=== PATIENT | male | born 1945 | race Caucasian/White ===

== ENCOUNTER → 2017-09-30 | Outpatient (CLI) | payer OTHER ==
[2016-11-01 19:59] VITALS: BP 147/68
[~2017-09-30] MED LIST: ACLI400A2 IH; ASPI325T8 PO; NIFE60TA14 PO; NIFE60TA16 PO; PROAIR HFA8.5 GM IH
--- NOTE | 2017-09-30 16:36 | RAD ---
Examination: CT chest without contrast History: History of cough Comparison: 09/25/2013 Technique: Axial CT images of the chest were performed without contrast. Coronal and sagittal reformats are performed PQRS Compliance Statement: One or more of the following individualized dose reduction techniques were utilized for this examination: 1. Automated exposure control 2. Adjustment of the mA and/or kV according to patient size 3. Use of iterative reconstruction technique Findings: The visualized thyroid gland grossly appears unremarkable. The central airways are patent. The heart size grossly appears unremarkable. . Coronary artery calcification is identified. The ascending aorta measures 3.2 cm in transverse dimension. No radiologically significant mediastinal lymphadenopathy identified. Mild paraseptal emphysematous is identified in the bilateral apical lungs. No evidence of pleural effusion or pneumothorax. The visualized noncontrasted liver, spleen, adrenals grossly appears unremarkable. Severe aortic atherosclerosis. Moderate degenerative changes thoracic spine. Impression: 1. Mild paraseptal emphysematous changes apical lungs. 2. Coronary artery calcifications.
== END | disposition home or self-care (01) ==
LOC: CT 15:47
PROVIDERS: ATTEND Internal Medicine Pulmonary Disease
DX: J43.8 Other emphysema (principal); I25.10 Atherosclerotic heart disease of native coronary artery without angina pectoris; I70.0 Atherosclerosis of aorta
CPT/HCPCS: 71250

== ENCOUNTER 2018-08-18 17:29 | Emergency (ER) | payer OTHER ==
[~2018-08-18] VITALS: Ht 188 cm; Wt 68.9 kg
[2018-08-18 18:04] LABS: BASO # 0.1 x10^3/uL (0.0-0.2); BASO % 1 % (0-3); EOS # 0.2 x10^3/uL (0.0-0.7); EOS % 3 % (0-3); HEMATOCRIT 40.4 % (39.0-53.0); HEMOGLOBIN 14.2 g/dL (13.0-17.5); LYMPH # 1.1 x10^3/uL (1.0-4.8); LYMPH % 16 % (24-48); MEAN CORPUSCULAR HEMOGLOBIN 35 pg (25-35); MEAN CORPUSCULAR HGB CONC 35 g/dL (31-37); MEAN CORPUSCULAR VOLUME 99 fL (79-100); MONO # 0.5 x10^3/uL (0.0-1.1); MONO % 8 % (0-9); NEUT # 5.1 x10^3uL (1.8-7.7); NEUT % 73 % (31-73); PLATELET COUNT 161 x10^3/uL (140-400); RED BLOOD COUNT 4.08 x10^6/uL (4.30-5.70); RED CELL DISTRIBUTION WIDTH 13.6 % (11.5-14.5)
[2018-08-18 18:12] LABS: CALCIUM 8.8 mg/dL (8.5-10.1); CREATININE 0.9 mg/dL (0.7-1.3); GFR 82.9
[2018-08-18 18:20] LABS: BILIRUBIN,URINE NEGATIVE (NEG); CLARITY,URINE CLOUDY; COLOR,URINE YELLOW; NITRITE,URINE NEGATIVE (NEG); PROTEIN,URINE NEGATIVE (NEG-TRACE); UROBILINOGEN,URINE 0.2 mg/dL (0.2 mg/dL)
--- NOTE | 2018-08-18 18:23 | PHYS DOC ---
Past Medical History Past Medical History: COPD, Other Additional Past Medical Histor: FATIMAH, Past Surgical History: Other Additional Past Surgical Histo: HERNIA X 3 Alcohol Use: None Drug Use: None Adult General Chief Complaint Chief Complaint: NEAR SYNCOPE HPI HPI Patient is a 73 year old male who presents with becoming lightheaded to 3 times a week for the last several weeks. Patient states that his job he has to squat down a lot and as he stands up he will get lightheaded or his legs his thighs bilaterally and losartan tingle only down to his heels after having squatted for a while work. Patient states he has never lost consciousness. Patient denies any chest pain or shortness of air. Review of Systems Review of Systems Constitutional: Denies fever or chills [] Eyes: Denies change in visual acuity, redness, or eye pain [] HENT: Denies nasal congestion or sore throat [] Respiratory: Denies cough or shortness of breath [] Cardiovascular: No additional information not addressed in HPI [] GI: Denies abdominal pain, nausea, vomiting, bloody stools or diarrhea [] : Denies dysuria or hematuria [] Musculoskeletal: Denies back pain or joint pain [] Integument: Denies rash or skin lesions [] Neurologic: Light headedness after standing up after having been squatted. Denies headache, focal weakness or bilateral thigh tingling after having squatted sensory changes [] Endocrine: Denies polyuria or polydipsia [] All other systems were reviewed and found to be within normal limits, except as documented in this note. Allergies Allergies Allergies Coded Allergies Type Severity Reaction Last Updated Verified No Known Drug Allergies 09/25/13 No Physical Exam Physical Exam Constitutional: Well developed, well nourished, no acute distress, non-toxic appearance. [] HENT: Normocephalic, atraumatic, bilateral external ears normal, oropharynx moist, no oral exudates, nose normal. [] Eyes: PERRLA, EOMI, conjunctiva normal, no discharge. [] Neck: Normal range of motion, no tenderness, supple, no stridor. [] Cardiovascular:Heart rate regular rhythm, no murmur [] Lungs & Thorax: Bilateral breath sounds clear to auscultation [] Abdomen: Bowel sounds normal, soft, no tenderness, no masses, no pulsatile masses. [] Skin: Warm, dry, no erythema, no rash. [] Back: No tenderness, no CVA tenderness. [] Extremities: No tenderness, no cyanosis, no clubbing, ROM intact, no edema. [] Neurologic: Alert and oriented X 3, normal motor function, normal sensory function, no focal deficits noted. [] Psychologic: Affect normal, judgement normal, mood normal. [] Current Patient Data Vital Signs Vital Signs Date Time Temp Pulse Resp B/P (MAP) Pulse Ox O2 Delivery O2 Flow Rate FiO2 08/18/18 17:52 98.4 72 18 175/81 (112) 99 Room Air 98.4 Lab Values Laboratory Tests Test 08/18/18 17:44 White Blood Count 7.0 x10^3/uL (4.0-11.0) Red Blood Count 4.08 x10^6/uL (4.30-5.70) L Hemoglobin 14.2 g/dL (13.0-17.5) Hematocrit 40.4 % (39.0-53.0) Mean Corpuscular Volume 99 fL (79-100) Mean Corpuscular Hemoglobin 35 pg (25-35) Mean Corpuscular Hemoglobin Concent 35 g/dL (31-37) Red Cell Distribution Width 13.6 % (11.5-14.5) Platelet Count 161 x10^3/uL (140-400) Neutrophils (%) (Auto) 73 % (31-73) Lymphocytes (%) (Auto) 16 % (24-48) L Monocytes (%) (Auto) 8 % (0-9) Eosinophils (%) (Auto) 3 % (0-3) Basophils (%) (Auto) 1 % (0-3) Neutrophils # (Auto) 5.1 x10^3uL (1.8-7.7) Lymphocytes # (Auto) 1.1 x10^3/uL (1.0-4.8) Monocytes # (Auto) 0.5 x10^3/uL (0.0-1.1) Eosinophils # (Auto) 0.2 x10^3/uL (0.0-0.7) Basophils # (Auto) 0.1 x10^3/uL (0.0-0.2) Urine Collection Type Void Urine Color Yellow Urine Clarity Cloudy Urine pH 7.0 Urine Specific [place] 1.010 Urine Protein Negative mg/dL (NEG-TRACE) Urine Glucose (UA) Negative mg/dL (NEG) Urine Ketones (Stick) Negative mg/dL (NEG) Urine Blood Negative (NEG) Urine Nitrite Negative (NEG) Urine Bilirubin Negative (NEG) Urine Urobilinogen Dipstick 0.2 mg/dL (0.2 mg/dL) Urine Leukocyte Esterase Negative (NEG) Urine RBC 0 /HPF (0-2) Urine WBC 1-4 /HPF (0-4) Urine Squamous Epithelial Cells Occ /LPF Urine Bacteria Few /HPF (0-FEW) Sodium Level 143 mmol/L (136-145) Potassium Level 4.0 mmol/L (3.5-5.1) Chloride Level 105 mmol/L (98-107) Carbon Dioxide Level 29 mmol/L (21-32) Anion Gap 9 (6-14) Blood Urea Nitrogen 17 mg/dL (8-26) Creatinine 0.9 mg/dL (0.7-1.3) Estimated GFR (Cockcroft-Gault) 82.9 Glucose Level 161 mg/dL (70-99) H Calcium Level 8.8 mg/dL (8.5-10.1) Troponin I Quantitative < 0.017 ng/mL (0.000-0.055) Urine Opiates Screen Neg (NEG) Urine Methadone Screen Neg (NEG) Urine Barbiturates Neg (NEG) Urine Phencyclidine Screen Neg (NEG) Urine Amphetamine/Methamphetamine Neg (NEG) Urine Benzodiazepines Screen Neg (NEG) Urine Cocaine Screen Neg (NEG) Urine Cannabinoids Screen Neg (NEG) Urine Ethyl Alcohol Neg (NEG) Laboratory Tests 08/18/18 17:44 Laboratory Tests 08/18/18 17:44 EKG EKG Irregular rhythm, no STEMI, there is sinus artifact present Interpretation Time: [address] Jackson Radiology/Procedures Radiology/Procedures Chest xray Impressions: NO ACUTE FINDINGS Course & Med Decision Making Course & Med Decision Making Patient is a 73 year old male who presents with becoming lightheaded to 3 times a week for the last several weeks. Patient states that his job he has to squat down a lot and as he stands up he will get lightheaded or his legs his thighs bilaterally and losartan tingle only down to his heels after having squatted for a while work. Patient states he has never lost consciousness. Patient denies any chest pain or shortness of air. Patient's vital signs are 175 /81, 18 respirations, 98.4, 72 heart rate. Patient is alert and oriented. Patient has no extremity edema and skin is pink warm and dry. Pedal pulses are strong bilaterally. Patient denies any tingling, numbness, pallor, or coolness of extremities. Patient states only time he gets sick tingling in his upper thighs is from when he is been squatting. Patient has a history of COPD, depression, ADD, arthritis. Patient states he takes Mucinex daily, aspirin. She states he is allergic to an antibiotic but he cannot remember what it is. Lungs are clear in all lobes. Heart rate regular without murmur. Orthostatics are layin, 152/74. Sittin/82, 73. Standin/79, 74. Dr. Jackson read the chest x-ray and states there is no acute findings. Patient's blood work is unremarkable. Patient's vital signs are unremarkable. He is alert and oriented and is not complaining of any dizziness time. Walks with a steady gait without any dizziness. Patient got up from the bed from a sitting position without any kind of dizziness. Patient can stand at bedside without having any dizziness or feeling like he is falling to the side. He is to follow-up with his doctor in the next couple days. Patient should come back to the ED if he begins having chest pain or syncopal episodes. Patient is stable and in no distress. Does have some white blood cells and some bacteria in his urine will treated for urinary tract infection. [] Dragon Disclaimer Dragon Disclaimer This electronic medical record was generated, in whole or in part, using a voice recognition dictation system. Departure Departure Impression: Primary Impression: Lightheadedness Additional Impression: Urinary tract infection Disposition: 01 HOME, SELF-CARE Condition: STABLE Referrals: NO PCP (PCP) Patient Instructions: Dizziness, Urinary Tract Infection Additional Instructions: Follow up with your primary care doctor as soon as possible. Return to the ED if your begin having chest pain or lose consciousness. Scripts Ciprofloxacin Hcl (CIPROFLOXACIN HCL) 500 Mg Tablet 1 TAB PO BID, #10 TAB Prov: RALPH SHAHParish Raymond APRN 08/18/18 Problem Qualifiers Additional Impression: Urinary tract infection Urinary tract infection type: site unspecified Hematuria presence: without hematuria Qualified Codes: N39.0 - Urinary tract infection, site not specified BILL SHAH APRN Aug 18, 2018 18:23
[2018-08-18 18:27] LABS: BARBITURATES NEG (NEG); BENZODIAZEPINES NEG (NEG); CANNABINOIDS NEG (NEG); COCAINE NEG (NEG); METHADONE NEG (NEG); OPIATES NEG (NEG); PHENCYCLIDINE NEG (NEG)
[2018-08-18 18:31] LABS: AMPHETAMINE/METHAMPHETAMINE NEG (NEG)
[2018-08-18 18:39] LABS: RBC,URINE 0 /HPF (0-2)
[2018-08-18 18:40] LABS: BACTERIA,URINE FEW /HPF (0-FEW); SQUAMOUS EPITHELIAL CELL,UR OCC /LPF
[2018-08-18] MEDS ORDERED: CIPR500T PO (19:22)
[2018-08-18 19:49] VITALS: BP 150/79
--- NOTE | 2018-08-18 23:24 | RAD ---
Indication:ER PATIENT. NEAR SYNCOPAL EPISODE TODAY. DIZZINESS. Nx HTN, COPD. NO PRIORS TECHNIQUE:PA and lateral views of the chest COMPARISON: None FINDINGS: Heart is normal in size. Lungs are hyperinflated with flattening of diaphragm and increased retrosternal space. No focal consolidation. No pneumothorax or pleural effusion. Visualized bony thorax is within normal limits. IMPRESSION: Findings of COPD. No acute pulmonary process. Electronically signed by: Murali Boss DO (08/18/2018 11:21 PM) [facility]
--- NOTE | 2018-08-19 09:20 | EKG ---
[facility] [address] [place] [address] Test Date: 2018-08-18 Test Time: 18:05:47 Pat Name: JAYDEN HINES Department: Room: Gender: M [employer]: : 1945 Requested By: BILL SHAH Order Number: [id number] Reading MD: Conner Cornell MD Measurements Intervals [place] Rate: 68 P: NM: QRS: 22 QRSD: 108 T: 56 QT: 384 QTc: 409 Interpretive Statements SR NON-SPECIFIC ST/T CHANGES Electronically Signed On 08-21-2018 11:29:51 CDT by Conner Cornell MD
== END 2018-08-18 19:50 | disposition home or self-care (01) ==
LOC: ER 17:29
DX: R42 Dizziness and giddiness (principal); N39.0 Urinary tract infection, site not specified; J44.9 Chronic obstructive pulmonary disease, unspecified
CPT/HCPCS: 36415; 71046; 80048; 80307; 81001; 84484; 85025; 93005; 99285-25; G0479

== ENCOUNTER 2018-09-13 23:09 | Emergency (ER) | payer OTHER ==
[~2018-09-13] VITALS: Ht 170.2 cm; Wt 66.9 kg
[~2018-09-13 23:09] MED LIST changes: +CIPR500T PO
[2018-09-13 23:42] VITALS: BP 142/76
[2018-09-14] MEDS ORDERED: CLIN300C8 PO (00:09)
--- NOTE | 2018-09-14 00:09 | PHYS DOC ---
Past Medical History Past Medical History: COPD, Other Additional Past Medical Histor: Raynauds Past Surgical History: Other Additional Past Surgical Histo: HERNIA X 3 Alcohol Use: None Drug Use: None Adult General Chief Complaint Chief Complaint: WOUND CHECK HPI HPI 73-year-old male presents with report of right shoulder swelling which patient reports he has had for several years. Reports became more swollen and tender over last several days. Family member noticed area had come to a "head" and ended up trying to drain it. Reports some purulent drainage. Patient denies any fever or chills. Review of Systems Review of Systems Constitutional: Denies fever or chills [] Eyes: Denies change in visual acuity, redness, or eye pain [] HENT: Denies nasal congestion or sore throat [] Respiratory: Denies cough or shortness of breath [] Cardiovascular: Denies chest pain or palpitations Integument: Reports swelling and tenderness to right shoulder Complete systems were reviewed and found to be within normal limits, except as documented in this note. Current Medications Current Medications Current Medications Medications (Trade) Dose Ordered Sig/Lars Start Time Stop Time Status Last Admin Dose Admin Clindamycin HCl (Cleocin) 450 mg 1X ONCE 09/14/18 00:30 09/14/18 00:31 Neomycin/ Polymyxin/ Bacitracin (Triple Antibiotic Ointment) 1 pkt 1X ONCE 09/14/18 00:30 09/14/18 00:31 Allergies Allergies Allergies Coded Allergies Type Severity Reaction Last Updated Verified No Known Drug Allergies 09/25/13 No Physical Exam Physical Exam Constitutional: Well developed, well nourished, no acute distress, non-toxic appearance. [] HENT: Normocephalic, atraumatic Eyes: Conjunctiva normal, no discharge. [] Neck: Normal range of motion, supple Lungs & Thorax: No respiratory distress, no accessory muscle use Skin: Warm, dry, 2cm swollen area with central opening to right posterior shoulder consistent for abscess, mildly indurated which upon palpation did express some purulent sebaceous discharge Neurologic: Alert and oriented X 3, no focal deficits noted. [] Psychologic: Affect normal, judgement normal, mood normal. [] EKG EKG [] Radiology/Procedures Radiology/Procedures [] Course & Med Decision Making Course & Med Decision Making Patient presents with history of present illness and physical exam consistent for abscess. Mild induration noted which upon palpitation produced some white purulent discharge. Empiric antibiotics initiated. Wound cleaned and dressed. Patient stable for discharge with outpatient follow-up with PCP. Discussed findings and plan with patient and family, who acknowledge understanding and agreement. Dragon Disclaimer Dragon Disclaimer This electronic medical record was generated, in whole or in part, using a voice recognition dictation system. Departure Departure Impression: Primary Impression: Abscess Disposition: HOME, SELF-CARE Condition: STABLE Referrals: LEYDA LANIER MD (PCP) Patient Instructions: Abscess, [id number] Scripts Clindamycin Hcl (CLINDAMYCIN HCL) 300 Mg Capsule 1 CAP PO TID, #15 CAP Prov: EDWIN MCGILL DO 09/14/18 EDWIN MCGILL DO Sep 14, 2018 00:09
[2018-09-14] MEDS ORDERED: CLINDAMYCIN HCL 150 MG CAPSULE. PO ONE (00:30)
[2018-09-14] MEDS ORDERED: NEOMY/BACITR/POLYMYXIN OINT PACKET. TP ONE (00:30)
== END 2018-09-14 00:31 | disposition home or self-care (01) ==
LOC: ER 23:09
DX: L02.413 Cutaneous abscess of right upper limb (principal); J44.9 Chronic obstructive pulmonary disease, unspecified; I73.00 Raynaud's syndrome without gangrene; Z98.890 Other specified postprocedural states
CPT/HCPCS: 99283

== ENCOUNTER 2019-03-08 03:14 | Emergency (ER) | payer OTHER ==
[~2019-03-08] VITALS: Ht 182.9 cm; Wt 66.7 kg
[~2019-03-08 03:14] MED LIST changes: +ALBU2.5V8 IH; +CLIN300C8 PO; -PROAIR HFA8.5 GM IH
--- NOTE | 2019-03-08 03:33 | PHYS DOC ---
Past Medical History Past Medical History: COPD, Other Additional Past Medical Histor: Raynauds Past Surgical History: Other Additional Past Surgical Histo: HERNIA X 3 Alcohol Use: None Drug Use: None Adult General HPI HPI Patient is a 74 year old M who presents for shortness of breath for 1 week. He was diagnosed with pneumonia and was given antibiotics 10 days ago. He has a history of COPD and is a current everyday smoker the pain is absent shortness of breath is improved after breathing treatment in the emergency room he does not think he was on steroids but is not sure Review of Systems Review of Systems Constitutional: Denies fever or chills [] Eyes: Denies change in visual acuity, redness, or eye pain [] HENT: Denies nasal congestion or sore throat [] Respiratory: Reports shortness of breath [] Cardiovascular GI: Denies abdominal pain, nausea, vomiting, bloody stools or diarrhea [] : Denies dysuria or hematuria [] Musculoskeletal: Denies back pain or joint pain [] Integument: Denies rash or skin lesions [] Neurologic: Denies headache, focal weakness or sensory changes [] Endocrine: Denies polyuria or polydipsia [] All other systems were reviewed and found to be within normal limits, except as documented in this note. Current Medications Current Medications Current Medications Medications (Trade) Dose Ordered Sig/Lars Start Time Stop Time Status Last Admin Dose Admin Albuterol/ Ipratropium (Duoneb) 3 ml 1X ONCE 03/08/19 03:45 03/08/19 03:46 DC 03/08/19 04:00 3 ML Prednisone (Prednisone) 50 mg 1X ONCE 03/08/19 03:45 03/08/19 03:46 DC Allergies Allergies Allergies Coded Allergies Type Severity Reaction Last Updated Verified No Known Drug Allergies 09/25/13 No Physical Exam Physical Exam Constitutional: Well developed, well nourished, no acute distress, disheveled appearance. [] HENT: Normocephalic, atraumatic, bilateral external ears normal, oropharynx moist, no oral exudates, nose normal. [] Eyes: PERRLA, EOMI, conjunctiva normal, no discharge. [] Neck: Normal range of motion, no tenderness, supple, no stridor. [] Cardiovascular:Heart rate regular rhythm, no murmur [] Lungs & Thorax: Wheezing bilaterally [] Abdomen: Bowel sounds normal, soft, no tenderness, no masses, no pulsatile masses. [] Skin: Warm, dry, no erythema, no rash. [] Back: No tenderness, no CVA tenderness. [] Extremities: No tenderness, no cyanosis, no clubbing, ROM intact, no edema. [] Neurologic: Alert and oriented X 3, normal motor function, normal sensory function, no focal deficits noted. [] Psychologic: Affect normal, judgement normal, mood normal. [] Current Patient Data Vital Signs Vital Signs Date Time Temp Pulse Resp B/P (MAP) Pulse Ox O2 Delivery O2 Flow Rate FiO2 03/08/19 04:02 95 Room Air 03/08/19 03:14 97.8 56 17 152/80 (104) 97.8 Lab Values Laboratory Tests Test 03/08/19 04:10 White Blood Count 6.2 x10^3/uL (4.0-11.0) Red Blood Count 4.04 x10^6/uL (4.30-5.70) L Hemoglobin 13.6 g/dL (13.0-17.5) Hematocrit 40.3 % (39.0-53.0) Mean Corpuscular Volume 100 fL (79-100) Mean Corpuscular Hemoglobin 34 pg (25-35) Mean Corpuscular Hemoglobin Concent 34 g/dL (31-37) Red Cell Distribution Width 14.4 % (11.5-14.5) Platelet Count 160 x10^3/uL (140-400) Neutrophils (%) (Auto) 58 % (31-73) Lymphocytes (%) (Auto) 27 % (24-48) Monocytes (%) (Auto) 9 % (0-9) Eosinophils (%) (Auto) 5 % (0-3) H Basophils (%) (Auto) 0 % (0-3) Neutrophils # (Auto) 3.6 x10^3uL (1.8-7.7) Lymphocytes # (Auto) 1.7 x10^3/uL (1.0-4.8) Monocytes # (Auto) 0.6 x10^3/uL (0.0-1.1) Eosinophils # (Auto) 0.3 x10^3/uL (0.0-0.7) Basophils # (Auto) 0.0 x10^3/uL (0.0-0.2) Sodium Level 146 mmol/L (136-145) H Potassium Level 3.8 mmol/L (3.5-5.1) Chloride Level 107 mmol/L (98-107) Carbon Dioxide Level 27 mmol/L (21-32) Anion Gap 12 (6-14) Blood Urea Nitrogen 14 mg/dL (8-26) Creatinine 0.6 mg/dL (0.7-1.3) L Estimated GFR (Cockcroft-Gault) 132.1 BUN/Creatinine Ratio 23 (6-20) H Glucose Level 71 mg/dL (70-99) Calcium Level 9.0 mg/dL (8.5-10.1) Total Bilirubin 0.2 mg/dL (0.2-1.0) Aspartate Amino Transferase (AST) 24 U/L (15-37) Alanine Aminotransferase (ALT) 39 U/L (16-63) Alkaline Phosphatase 82 U/L (46-116) Troponin I Quantitative < 0.017 ng/mL (0.000-0.055) LA-Xff-Z-Type Natriuretic Peptide 60 pg/mL (0-124) Total Protein 6.0 g/dL (6.4-8.2) L Albumin 3.4 g/dL (3.4-5.0) Albumin/Globulin Ratio 1.3 (1.0-1.7) Laboratory Tests 03/08/19 04:10 Laboratory Tests 03/08/19 04:10 EKG EKG [] Interpretation Time: EKG shows a normal sinus rhythm rate of 54 ischemic changes noted interpreted by me time of encounter Radiology/Procedures Radiology/Procedures [] Impressions: CXR my read was essentially negative acute no definite pneumonia there were some faint interstitial change Course & Med Decision Making Course & Med Decision Making Pertinent Labs and Imaging studies reviewed. (See chart for details) []Wheezing was improved after nebulizer treatment. No definite pneumonia on chest x-ray patient tells me he has not had prednisone he has had antibiotics is near the end of the course saturation normal he is resting completely think is safe for outpatient management perception for prednisone follow-up with primary care doctor Ning Disclaimer Ning Disclaimer This electronic medical record was generated, in whole or in part, using a voice recognition dictation system. Departure Departure Impression: Primary Impression: COPD exacerbation Disposition: 01 HOME, SELF-CARE Condition: IMPROVED Referrals: LEYDA LANIER MD (PCP) Scripts Prednisone (PREDNISONE) 50 Mg Tablet 1 TAB PO DAILY, #5 TAB Prov: CHARLOTTE BRADSHAW MD 03/08/19 CHARLOTTE BRADSHAW MD March 08, 2019 03:33
[2019-03-08] MEDS ORDERED: IPRATRPIUM/ALBUTEROL 0.5/2.5MG 3 ML NEBU. NEB ONE (03:45)
[2019-03-08] MEDS ORDERED: predniSONE 10 MG TABLET PO ONE (03:45)
[2019-03-08 04:23] LABS: BASO % 0 % (0-3); EOS # 0.3 x10^3/uL (0.0-0.7); EOS % 5 % (0-3); HEMATOCRIT 40.3 % (39.0-53.0); HEMOGLOBIN 13.6 g/dL (13.0-17.5); LYMPH # 1.7 x10^3/uL (1.0-4.8); LYMPH % 27 % (24-48); MEAN CORPUSCULAR HEMOGLOBIN 34 pg (25-35); MEAN CORPUSCULAR HGB CONC 34 g/dL (31-37); MEAN CORPUSCULAR VOLUME 100 fL (79-100); MONO # 0.6 x10^3/uL (0.0-1.1); MONO % 9 % (0-9); NEUT # 3.6 x10^3uL (1.8-7.7); NEUT % 58 % (31-73); PLATELET COUNT 160 x10^3/uL (140-400); RED BLOOD COUNT 4.04 x10^6/uL (4.30-5.70); RED CELL DISTRIBUTION WIDTH 14.4 % (11.5-14.5); WHITE BLOOD COUNT 6.2 x10^3/uL (4.0-11.0)
[2019-03-08 04:38] LABS: ALBUMIN 3.4 g/dL (3.4-5.0); ALBUMIN/GLOBULIN RATIO 1.3 (1.0-1.7); CREATININE 0.6 mg/dL (0.7-1.3); GFR 132.1; POTASSIUM 3.8 mmol/L (3.5-5.1); TOTAL BILIRUBIN 0.2 mg/dL (0.2-1.0)
[2019-03-08] MEDS ORDERED: PRED50TA PO (05:16)
[2019-03-08 07:03] VITALS: BP 149/72
--- NOTE | 2019-03-08 07:14 | EKG ---
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
--- NOTE | 2019-03-08 08:28 | RAD ---
PORTABLE CHEST 1V History: Shortness of breath Comparison: 08/18/2018 Findings: Single view of the chest is submitted. There is no infiltrate, pneumothorax, or effusion. The pericardial cardiac silhouette is within normal limits in size. Impression: 1. There is no radiographic evidence of acute cardiopulmonary disease. Electronically signed by: Timbo Shah MD (03/08/2019 8:25 AM) [id number]
== END 2019-03-08 07:11 | disposition home or self-care (01) ==
LOC: ER 03:14
DX: J44.1 Chronic obstructive pulmonary disease with (acute) exacerbation (principal); F17.200 Nicotine dependence, unspecified, uncomplicated
CPT/HCPCS: 36415; 71045; 80053; 83880; 84484; 85025; 93005; 94640; 99285; J7512; J7620